=== PATIENT | male | born 1975 | race Caucasian/White ===

== ENCOUNTER 2021-06-01 06:45 | Day surgery (SDC) | payer OTHER ==
[~2021-06-01] VITALS: Ht 182.9 cm; Wt 127.1 kg
[~2021-06-01 06:45] MED LIST: ACEBUTCAFT PO; ALBIPROI INH; AZIT500 PO; EPIN.3I IM; HYDGUAL120 PO; MECL25 PO; ONDA4ODT MM
[2021-06-01] MEDS ORDERED: FISH OIL 1,2001 EAC7 PO (07:32)
[2021-06-01] MEDS ORDERED: CYCL10 (07:32)
[2021-06-01] MEDS ORDERED: ASPI81CH PO (07:32)
[2021-06-01] MEDS ORDERED: LISI5 PO (07:33)
--- NOTE | 2021-06-01 07:36 | NUR ---
06/01/21 0736 Vamshi Obrien CALL LIGHT WITHIN REACH. TWO IV ATTEMPTS. FIRST ATTEMPT ON RIGHT WRIST AND INFILTRATED. SECOND IV ATTEMPT ON RIGHT HAND SUCCESSFUL. PT TOLERATED BOTH IV ATTEMPTS WELL.
--- NOTE | 2021-06-01 08:49 | NUR ---
06/01/21 0849 Jo Ann Paz PT AMBULATED WTIH OUT TO CAR, STEADY ON FEET. NO QUESTIONS OR CONCERNS AT THIS TIME. COPY OF DC INSTRUCTIONS IN HAND.
== END 2021-06-01 08:48 | disposition home or self-care (01) ==
LOC: ORSCSDS 06:45
PROVIDERS: Orthopaedic Surgery
PROC: 01N50ZZ Release Median Nerve, Open Approach (ICD-10-PCS; principal; 2021-06-01 08:00)
DX: G56.02 Carpal tunnel syndrome, left upper limb (principal); I10 Essential (primary) hypertension; Z87.891 Personal history of nicotine dependence; K21.9 Gastro-esophageal reflux disease without esophagitis; E66.01 Morbid (severe) obesity due to excess calories; Z68.38 Body mass index [BMI] 38.0-38.9, adult; Z79.82 Long term (current) use of aspirin; Z79.899 Other long term (current) drug therapy
CPT/HCPCS: J2250; J2704; J3010; J7120

== ENCOUNTER 2021-07-14 08:45 | Day surgery (SDC) | payer OTHER ==
[~2021-07-14] VITALS: Ht 182.9 cm; Wt 129.5 kg
[~2021-07-14 08:45] MED LIST changes: +ASPI81CH PO; +CYCL10; +FISH OIL 1,2001 EAC7 PO; +LISI5 PO
[2021-07-14] MEDS ORDERED: OMEP20ER (09:15)
--- NOTE | 2021-07-14 09:46 | NUR ---
07/14/21 0946 Jo Ann Paz PT IN ROOM WITH SPOUSE. CALL LIGHT WITHIN REACH. BED IN LOWEST POSITION. NO QUESTIONS AT THIS TIME.
== END 2021-07-14 10:59 | disposition home or self-care (01) ==
LOC: ORSCSDS 08:45
PROVIDERS: Orthopaedic Surgery
PROC: 01N50ZZ Release Median Nerve, Open Approach (ICD-10-PCS; principal; 2021-07-14 10:00)
DX: G56.01 Carpal tunnel syndrome, right upper limb (principal); I10 Essential (primary) hypertension; Z87.891 Personal history of nicotine dependence; K21.9 Gastro-esophageal reflux disease without esophagitis; E66.01 Morbid (severe) obesity due to excess calories; Z68.38 Body mass index [BMI] 38.0-38.9, adult; Z79.899 Other long term (current) drug therapy; Z79.82 Long term (current) use of aspirin
CPT/HCPCS: J2250; J2704; J3010